=== PATIENT | male | born 1990 | race African-American/Black ===

== ENCOUNTER 2019-04-28 11:14 | Emergency (ER) | payer OTHER ==
[~2019-04-28] VITALS: Ht 180.3 cm; Wt 127.0 kg
[2019-04-28] MEDS ORDERED: fentaNYL PF VIAL 100 MCG/2 ML VIAL IV ONE (12:45)
--- NOTE | 2019-04-28 13:29 | RAD ---
AP, lateral and oblique views of the right ankle. No comparison is available. Indication: Ankle sprain and pain. There is a possible avulsion type injury from the medial malleolus versus normal variant.. The ankle mortise is intact. There is lateral soft tissue swelling seen over the lateral malleolus. Cannot exclude ligamentous injury. Impression: Soft tissue swelling laterally, cannot exclude ligamentous injury. A avulsion fracture versus normal variant of the medial malleolus. Electronically signed by: Juan Solano MD (04/28/2019 1:26 PM) [facility]
--- NOTE | 2019-04-28 13:47 | PHYS DOC ---
Past Medical History Past Medical History: GERD Past Surgical History: No Surgical History Additional Information: Nonsmoker Alcohol Use: None Drug Use: None Adult General Chief Complaint Chief Complaint: ANKLE PROBLEM HPI HPI 28-year-old male presents from [facility] where he currently is in inmate with report of right ankle pain and swelling. Patient reports he was playing basketball and ended up "rolling it ". Denies numbness or tingling. Reports pain and swelling to lateral aspect. Patient reports unable to bear weight on ankle. Denies other injury. Review of Systems Review of Systems Constitutional: Denies fever or chills Eyes: Denies redness or eye pain HENT: Denies nasal congestion or sore throat Respiratory: Denies cough or shortness of breath Cardiovascular: Denies chest pain or palpitations GI: Denies abdominal pain, nausea, or vomiting : Denies dysuria or hematuria Musculoskeletal: Right ankle pain and swelling Integument: Denies rash or skin lesions Neurologic: Denies headache, focal weakness or sensory changes Complete systems were reviewed and found to be within normal limits, except as documented in this note. Current Medications Current Medications Current Medications Medications (Trade) Dose Ordered Sig/Veronika Start Time Stop Time Status Last Admin Dose Admin Fentanyl Citrate (Fentanyl 2ml Vial) 50 mcg 1X ONCE 04/28/19 12:45 04/28/19 12:46 DC 04/28/19 13:10 50 MCG Allergies Allergies Allergies Coded Allergies Type Severity Reaction Last Updated Verified No Known Drug Allergies 04/28/19 No Physical Exam Physical Exam Constitutional: Well developed, well nourished, no acute distress, non-toxic appearance HENT: Normocephalic, atraumatic, oropharynx moist Eyes: Conjunctiva normal, no discharge Neck: Normal range of motion, no tenderness, supple Cardiovascular: Right DP and PT +2, cap refill less than 2 seconds Skin: Warm, dry, right lateral ankle edema Extremities: Right lateral ankle tenderness, anterior drawer test negative Neurologic: Alert and oriented X 3, no focal deficits noted Psychologic: Affect normal, judgement normal Current Patient Data Vital Signs Vital Signs Date Time Temp Pulse Resp B/P (MAP) Pulse Ox O2 Delivery O2 Flow Rate FiO2 04/28/19 13:56 66 145/78 (100) 98 Room Air 04/28/19 13:10 25 04/28/19 11:49 97.9 97.9 EKG EKG [] Radiology/Procedures Radiology/Procedures PROCEDURE: ANKLE RIGHT 3V AP, lateral and oblique views of the right ankle. No comparison is available. Indication: Ankle sprain and pain. There is a possible avulsion type injury from the medial malleolus versus normal variant.. The ankle mortise is intact. There is lateral soft tissue swelling seen over the lateral malleolus. Cannot exclude ligamentous injury. Impression: Soft tissue swelling laterally, cannot exclude ligamentous injury. A avulsion fracture versus normal variant of the medial malleolus. Electronically signed by: Juan Solano MD (04/28/2019 1:26 PM) [facility] Course & Med Decision Making Course & Med Decision Making Pertinent Imaging studies reviewed. (See chart for details) Patient who is an Inmate at [facility] presents for evaluation of right ankle pain and lateral swelling after rolling it while playing basketball. Pain addressed. Ice applied. X-ray noted possible avulsion fracture versus normal variant. Cannot fully exclude avulsion fracture therefore patient placed in air splint and placed and crutches. Patient stable for discharge with outpatient follow-up with PCP/Orthopedics. Discussed findings and plan with patient, who acknowledges understanding and agreement. Dragon Disclaimer Dragon Disclaimer This electronic medical record was generated, in whole or in part, using a voice recognition dictation system. Splinting Splinting : Location: Right ankle Pre-Made Type: aircast Pre-Proc Neuro Vasc Exam: normal Post-Proc Neuro Vasc Exam: normal, unchanged from pre-exam Departure Departure Impression: Primary Impression: Avulsion fracture of ankle Additional Impression: Sprain of ligament of right ankle Disposition: 01 HOME, SELF-CARE (back to [facility]) Condition: STABLE Referrals: UNKNOWN PCP NAME (PCP) BERONICA BRAUN II, MD Patient Instructions: Ankle Sprain, [id number], Avulsion Fracture, Crutch Use, [id number] Additional Instructions: Use over the counter Tylenol and Ibuprofen for pain or discomfort. ICE area 20 min on then leave off for next 20 min. Problem Qualifiers Primary Impression: Avulsion fracture of ankle Encounter type: initial encounter Fracture type: closed Laterality: right Qualified Codes: S82.891A - Other fracture of right lower leg, initial encounter for closed fracture Additional Impression: Sprain of ligament of right ankle Encounter type: initial encounter Qualified Codes: S93.401A - Sprain of unspecified ligament of right ankle, initial encounter JOSÉ MIGUEL JI DO Apr 28, 2019 13:47
[2019-04-28 13:56] VITALS: BP 145/78
== END 2019-04-28 14:30 | disposition home or self-care (01) ==
LOC: ER 11:14 → EEVIPCON 11:14 → ER 14:30
DX: S82.891A Other fracture of right lower leg, initial encounter for closed fracture (principal); K21.9 Gastro-esophageal reflux disease without esophagitis; X50.1XXA Overexertion from prolonged static or awkward postures, initial encounter; Y93.67 Activity, basketball; Y92.89 Other specified places as the place of occurrence of the external cause; Y99.8 Other external cause status
CPT/HCPCS: 29515; 73610; 96374; 99284; J3010